=== PATIENT | male | born 1970 | race African-American/Black ===

== ENCOUNTER 2016-09-20 11:03 | Emergency (ER) | payer SELFPAY ==
--- NOTE | 2016-09-20 11:15 | Emergency Department Record ---
History of Present Illness - General Chief complaint: Pain Stated complaint: LEFT RIB AREA PAINFUL Time Seen by Provider: 09/20/16 11:04 Source: Patient Mode of Arrival: Ambulatory Limitations: No limitations - History of Present Illness Initial comments: 45 yo male presents with 2 days of left rib pain. He was wrestling with a friend from work. He has had pain in that area since. It hurts ot move, cough or take deep breaths. No other injuries or complaints. He is from [place] traveling for work. He has HTN as his only past medical history. No other current symptoms. No NVD. NO abdominal pain. No hemoptysis. MD Complaint: Other (Left rib pain) -: Days(s) (2) Location: Other (Left ribs) -: No Arthralgia, No Fever, No Myalgia, Yes Associated chest pain (rib pain) Radiation: Other (mid left chest laterally) Quality: Aching, Sharp Consistency: Constant Improves with: Immobilization Worsens with: Palpation Associated Symptoms: Denies other symptoms - Related Data Home Medications Medication Instructions Recorded Confirmed Last Taken Hydrochlorothiazide 12.5 mg PO DAILY 09/20/16 09/20/16 Unknown Previous Rx's Medication Instructions Recorded Hydrocodone/Acetaminophen [[place] 1 each PO Q8H #10 tablet 09/20/16 5-325 Tablet] Naproxen [Naprosyn] 500 mg PO BID #20 tablet 09/20/16 Allergies Allergy/AdvReac Type Severity Reaction Status Date / Time No Known Drug Allergies Allergy Verified 09/20/16 11:11 Review of Systems Constitutional: Denies: Chills, Fever, Malaise, Weakness Eyes: Denies: Eye discharge ENT: Denies: Congestion, Throat pain Respiratory: Reports: Dyspnea. Denies: Cough, Hemoptysis, Stridor, Wheezes Cardiovascular: Reports: Chest pain (ribs on left as noted). Denies: Edema, Palpitations, Syncope Endocrine: Denies: Fatigue, Polydipsia, Polyuria Gastrointestinal: Denies: Abdominal pain, Constipation, Nausea, Vomiting Genitourinary: Denies: Dysuria, Frequency, Hematuria, Urgency Musculoskeletal: Denies: Arthralgia, Back pain, Gout, Joint swelling, Myalgia, Neck pain Neurological: Denies: Abnormal gait, Confusion, Headache, Numbness, Tingling, Tremors, Vertigo, Weakness Psychiatric: Denies: Anxiety Hematological/Lymphatic: Denies: Anemia, Blood Clots, Easy bleeding, Easy bruising, Swollen glands Physical Exam - General General Appearance: Alert, Oriented x3, Cooperative, No acute distress Limitations: No limitations - Head Head exam: Atraumatic, Normocephalic, Normal inspection - Eye Eye exam: Normal appearance, PERRL. negative: Conjunctival injection, Periorbital swelling - ENT ENT exam: Normal exam, Mucous membranes moist Ear exam: Normal external inspection Nasal Exam: Normal inspection Mouth exam: Normal external inspection - Neck Neck exam: Normal inspection, Full ROM. negative: Tenderness - Respiratory Respiratory exam: Normal lung sounds bilaterally, Chest wall tenderness (tender mid lateral left chest wall, no crepitus, normal inpection, symmentric lungs compared to the right). negative: Accessory muscle use, Decreased breath sounds , Prolonged expiratory, Respiratory distress, Rhonchi, Stridor, Wheezes - Cardiovascular Cardiovascular Exam: Regular rate, Normal rhythm, Normal heart sounds - GI/Abdominal GI/Abdominal exam: Soft, Other (very soft and non tender abdomen). negative: Distended, Guarding, Rebound, Rigid, Tenderness - Rectal Rectal exam: Deferred - exam: Deferred - Extremities Extremities exam: Normal inspection, Full ROM, Normal capillary refill. negative: Tenderness - Back Back exam: Denies: CVA tenderness (L) (no CVA tenderness on the left, normal inspection without bruising ) Course - Reevaluation(s) Reevaluation #1: The XR was negative for acute process. No fx or PTX RT taught IS We discussed signs and symptoms for return for evaluation 09/20/16 12:30 Reevaluation #2: 09/20/16 12:39 We discussed the results, reasons to return and home care. Reevaluation #3: On recheck the pain is now drowsy. His oxygen levels desaturate into the 80's. He is sweating as well. He denies and drugs or alcohol but seems sleepy as well. 09/20/16 13:31 The patient reports he has sleep apnea and is not to have night time issue. He has never used CPAP EKG Sinus tach 104, intervals QT 502, [place] left [facility], ST NS changes, LVH. 09/20/16 13:46 Reevaluation #4: The labs were reviewed Troponin is indeterminate at 0.051 ETOH is 0.00 Hgb is 20.0 09/20/16 14:15 09/20/16 14:49 The patient has had desaturation to the 60-70's with a good wave form on room air when asleep He is very slurred trying to wake and take significant assistance to awaken With assistance of jaw thrust and oxygen his saturations improved to 90's CTA of the chest and ABG were ordered. 09/20/16 15:39 Called by radiology The patient has an aortic dissection beyond the subclavian to the level of the pulmonary artery HR 199/153 09/20/16 15:48 I ADELSO Gonzalez He recommends medical admission to the ICU Labetalol drip ordered. 09/20/16 15:57 I ADELSO Mcginnis. He agrees admit to [facility] for the aortic dissection. Reevaluation #5: Labetalol drip ordered at 2mg/min 09/20/16 16:15 09/20/16 16:33 The Labetalol Drip is infusing. HR down to 79, BP 150/100 The drip is being titrated to improve BP 09/20/16 16:44 HR 74 BP 139/103 on 4mg/min Will continue to titrate to 5mg/min 09/20/16 16:45 09/20/16 17:01 118/97 BP, HR 75 09/20/16 17:21 122/81 BP [facility] team in the ED Medical Decision Making - Management Options MDM Management: Additional Work-up Planned (e.g. ADM/Transfer/OP Study) - Data Complexity MDM Data: Labs Ordered and/or Reviewed, X-Ray Ordered and/or Reviewed, EKG Ordered and/or Reviewed, Independent Visualization of Image, Tracing, or Specimen, Discussion of Test Results With Performing Physician, Review and Summary of Old Record Discussed - Lab Data Result diagrams: 09/20/16 13:35 09/20/16 13:35 - EKG Data -: EKG Interpreted by Me Critical Care Time Critical Care Time: Yes (90 minutes) Total Critical Care Time: 90 Disposition Disposition: Transfer Clinical Impression: Hypoxia, Elevated troponin, Aortic dissection Contusion of rib on left side Qualifiers: Encounter type: initial encounter Qualified Code(s): S20.212A - Contusion of left front wall of thorax, initial encounter Disposition: Home, Self-Care Transfer To: [facility] Reason For Transfer: Hypoxia elevated troponin Accepting Physician: Rahel Burnett Time Discussed w/Accepting Physician: 16:00 Condition: (2) Stable Additional Instructions: Return if the pain is worse, not controlled, short of breath or any new concerns. Use the breathing exercises as directed Prescriptions: Hydrocodone/Acetaminophen [[place] 5-325 Tablet] 1 each PO Q8H #10 tablet Naproxen [Naprosyn] 500 mg PO BID #20 tablet Forms: Patient Portal Access Time of Disposition: 12:38
[2016-09-20] MEDS ORDERED: KETOROLAC 30 MG/ML VIAL IM ONE (11:55)
[2016-09-20 13:46] LABS: BASO % 0.2 % (0-6); EOS % 1.1 % (0-6); GRAN % 63.8 % (47-80); HEMATOCRIT 60.8 % (42.0-52.0); HEMOGLOBIN 20.2 gm/dl (14.0-18.0); LYMPH % 23.4 % (16-45); MEAN CELL VOLUME 98.5 fl (81-97); MEAN CORPUSCULAR HEMOGLOBIN 32.7 pg (27-33); MEAN CORPUSCULAR HGB CONC 33.2 g/dl (32-36); MEAN PLATELET VOLUME 10.9 fl (7.4-10.4); MONO % 11.5 % (0-9); PLATELET COUNT 152 K/uL (130-400); RED BLOOD COUNT 6.17 M/uL (4.40-5.70); RED CELL DISTRIBUTION WIDTH 15.7 % (11.5-14.5); WHITE BLOOD COUNT W/O DIFF 9.5 K/uL (4.2-12.2)
[2016-09-20 14:00] LABS: ALB/GLOB RATIO 0.9 (1.1-1.8); ALBUMIN 3.5 gm/dL (3.5-5.0); ALKALINE PHOSPHATASE 103 U/L (38-126); ALT/SGPT 64 U/L (21-72); ANION GAP 9.1 (7-16); AST/SGOT 58 U/L (17-59); BILIRUBIN,TOTAL 1.44 mg/dL (0.2-1.3); BLOOD UREA NITROGEN 13 mg/dL (9-20); CARBON DIOXIDE 32.9 mmol/L (22-30); EST GLOMERULAR FILTRATION RATE > 60 ml/min; GLUCOSE,RANDOM 98 mg/dL (70-110); TOTAL PROTEIN 7.2 gm/dL (6.3-8.2)
[2016-09-20 14:01] LABS: INR 1.06; PARTIAL THROMBOPLASTIN TIME 29.3 SECONDS (24.5-39.1)
[2016-09-20 14:58] LABS: ARTERIAL BLD GAS O2 SATURATION 89.4 % (95-98); ARTERIAL BLOOD GAS BASE EXCESS 3.4 mmol/L (-2 - 3); ARTERIAL BLOOD GAS HCO3 29.7 mmol/L (18-23); ARTERIAL BLOOD GAS PCO2 51.3 mmHg (35-48); ARTERIAL BLOOD GAS pH 7.38 (7.35-7.45); CARBOXYHEMOGLOBIN 4.3 % (0-1.5); METHEMOGLOBIN 0.2 % (0.0-1.5); O2 HEMOGLOBIN 85.4 % vol (94-99); TOTAL HEMOGLOBIN 19.4 g/dl (14-18)
[2016-09-20 15:01] LABS: ALLEN TEST PASS
[2016-09-20] MEDS ORDERED: LABETALOL HCL 5MG/ML, 20ML VIAL IV ONE ×2 (15:39→16:19)
[2016-09-20] MEDS ORDERED: LIDOCAINE 2% JELLY 30 ML TUBE TOP ONE (16:14)
[2016-09-20] MEDS ORDERED: SODIUM CHLORIDE 0.9% IVPB ONE (16:15)
[2016-09-20] MEDS ORDERED: LABETALOL HCL SIVP ONE (16:15)
[2016-09-20] MEDS ORDERED: LABETALOL HCL IVPB ONE (16:15)
[2016-09-20] MEDS ORDERED: SODIUM CHLORIDE 0.9% SIVP ONE (16:15)
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
--- NOTE | 2016-09-21 09:02 | CT ANGIOGRAM REPORT ---
DATE: 09/20/2016. EXAM: CT ANGIOGRAM OF THE CHEST. HISTORY: Difficulty breathing causing chest pain. TECHNIQUE: A CTA of the chest was performed after intravenous administration of 90 mL of Omnipaque 350 contrast material. Sagittal and coronal MIP images were performed on an independent work station. FINDINGS: There is a type III aortic dissection which originates just beyond the takeoff of the left subclavian artery. It extends to the level of the left main pulmonary artery. There is satisfactory opacification of the pulmonary arteries. There is cardiomegaly without pericardial effusion. There is diffuse pulmonary vascular congestion. There is a 12 mm calcified granuloma of the left lung base. The visualized upper abdominal structures are normal. IMPRESSION: 1. TYPE III AORTIC DISSECTION WHICH ORIGINATES JUST BEYOND THE TAKEOFF OF THE LEFT SUBCLAVIAN ARTERY AND EXTENDS TO THE LEFT MAIN PULMONARY ARTERY. 2. CARDIOMEGALY WITH PULMONARY VASCULAR CONGESTION. 3. FINDINGS SUGGESTIVE OF CALCIFIED GRANULOMATOUS DISEASE. JOB NUMBER: [id number] MTDD
== END 2016-09-20 17:47 | disposition home or self-care (01) ==
LOC: ER 11:03
DX: S25.09XA Other specified injury of thoracic aorta, initial encounter (principal); S20.212A Contusion of left front wall of thorax, initial encounter; R79.89 Other specified abnormal findings of blood chemistry; R09.02 Hypoxemia; I10 Essential (primary) hypertension; F17.210 Nicotine dependence, cigarettes, uncomplicated; Y93.72 Activity, wrestling
CPT/HCPCS: 99285 ×2; 96376; 96365; 96375; 85025; 85730; 85610; 82375; 84484; 80053; 82803; 71101; 71275; 36600; 93005; 93010; G0480; Q9967; J1885; 80320